=== PATIENT | female | born 1975 ===

== ENCOUNTER 2022-10-07 14:26 | Emergency (ER) | payer SELFPAY ==
[~2022-10-07] VITALS: Ht 160 cm; Wt 79.8 kg
[2022-10-07] MEDS ORDERED: morphine INJ 10 MG/ML 1ML (SYR OR VIAL) IVP STA (14:46)
--- NOTE | 2022-10-07 14:50 | ED Cardiac General ---
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 Chest pain started on September 15. She states she was seen at [facility] for this chest pain and heart palpitations with a negative work-up. She states she was seen at [facility] yesterday in [place] for the similar chest pain and heart palpitations and had lab work drawn and started on metoprolol tart 825 mg for elevated blood pressure. She states since September 15 she is having chest pressure that is intermittent and pain in her upper abdomen. Seems to be intermittent with associated shortness of breath. No increasing pain with eating. Denies of any previous abdominal surgeries. Denies hypertension, diabetes, high cholesterol, smoking. No known history of coronary artery disease. She states she does not feel well. She states loud noises make the heart palpitations worse. She denies of any recent travels or surgeries or leg swelling. She denies fever, chills, sore throat, cough, vomiting or diarrhea or urinary symptoms. She states her blood pressure has been fluctuating high. Blood pressure yesterday was around 137 systolic. This pain became worse last night and has remained constant in her chest and upper abdomen. Patient having difficulties with sleeping. She states she has is continued heart palpitations since last night. Patient is speaking certified public accountant was used. Allergies and Home Medications Allergies Coded Allergies: No Known Drug Allergies (Unverified , 10/07/22) Patient Home Medication List Home Medication List Reviewed: Yes Pantoprazole Sodium (Protonix) 40 Mg Tablet.dr 40 MG PO DAILY Prescribed by: LORAINE RAMÍREZ on 10/07/22 7237 Review of Systems Review of Systems Constitutional: No chills, No diaphoresis, No fever, No malaise EENTM: No Double Vision, No Eye Pain Respiratory: Denies Cough, Denies Orthopnea; Shortness of Air Cardiovascular: Chest Pain Gastrointestinal: Abdominal Pain; Denies Diarrhea, Denies Nausea, Denies Vomiting Genitourinary: Denies Burning, Denies Discharge Musculoskeletal: No back pain, No joint pain Skin: No change in color All Other Systems Reviewed Negative Unless Noted: Yes Physical Exam Vital Signs Vital Signs - First Documented 10/07/22 14:26 Temp 36.9 Pulse 68 Resp 26 B/P (MAP) 159/96 (117) Pulse Ox 98 Capillary Refill : Height, Weight, BMI Height: '" Weight: lbs. oz. kg; BMI Method: General Appearance: No Apparent Distress, WD/WN HEENT: PERRL/EOMI, TMs Normal, Normal ENT Inspection, Pharynx Normal Neck: Full Range of Motion, Normal Inspection, Non Tender, Supple Respiratory: Chest Non Tender, Lungs Clear, Normal Breath Sounds, No Accessory Muscle Use, No Respiratory Distress Cardiovascular: Regular Rate, Rhythm, No Edema, No Gallop, No JVD, No Murmur Gastrointestinal: Normal Bowel Sounds, No Organomegaly, No Pulsatile Mass, Soft, Tenderness (Epigastric tenderness) Neurologic/Psychiatric: Alert, Oriented x3, No Motor/Sensory Deficits, Normal Mood/Affect, card setter II-XII Norm as Tested Skin: Normal Color, Warm/Dry Progress/Results/Core Measures Results/Orders Lab Results Laboratory Tests Test 10/07/22 14:35 10/07/22 15:22 Range/Units White Blood Count 11.2 H 4.3-11.0 10^3/uL Red Blood Count 4.83 3.80-5.11 10^6/uL Hemoglobin 15.0 11.5-16.0 g/dL Hematocrit 44 35-52 % Mean Corpuscular Volume 90 80-99 fL Mean Corpuscular Hemoglobin 31 25-34 pg Mean Corpuscular Hemoglobin Concent 34 32-36 g/dL Red Cell Distribution Width 12.3 10.0-14.5 % Platelet Count 242 130-400 10^3/uL Mean Platelet Volume 10.7 9.0-12.2 fL Immature Granulocyte % (Auto) 0 % Neutrophils (%) (Auto) 75 42-75 % Lymphocytes (%) (Auto) 17 12-44 % Monocytes (%) (Auto) 7 0-12 % Eosinophils (%) (Auto) 0 0-10 % Basophils (%) (Auto) 0 0-10 % Neutrophils # (Auto) 8.3 H 1.8-7.8 X 10^3 Lymphocytes # (Auto) 1.9 1.0-4.0 X 10^3 Monocytes # (Auto) 0.8 0.0-1.0 X 10^3 Eosinophils # (Auto) 0.0 0.0-0.3 10^3/uL Basophils # (Auto) 0.0 0.0-0.1 10^3/uL Immature Granulocyte # (Auto) 0.0 0.0-0.1 10^3/uL Prothrombin Time 12.4 12.2-14.7 SEC INR Comment 0.9 0.8-1.4 Activated Partial Thromboplast Time 26 24-35 SEC Sodium Level 141 135-145 MMOL/L Potassium Level 3.4 L 3.6-5.0 MMOL/L Chloride Level 107 98-107 MMOL/L Carbon Dioxide Level 23 21-32 MMOL/L Anion Gap 11 5-14 MMOL/L Blood Urea Nitrogen 6 L 7-18 MG/DL Creatinine 0.70 0.60-1.30 MG/DL Estimat Glomerular Filtration Rate 109 BUN/Creatinine Ratio 9 Glucose Level 120 H 70-105 MG/DL Calcium Level 9.5 8.5-10.1 MG/DL Corrected Calcium 8.5-10.1 MG/DL Magnesium Level 2.4 1.6-2.4 MG/DL Total Bilirubin 0.5 0.1-1.0 MG/DL Aspartate Amino Transf (AST/SGOT) 21 5-34 U/L Alanine Aminotransferase (ALT/SGPT) 20 0-55 U/L Alkaline Phosphatase 80 40-136 U/L Myoglobin 17.5 10.0-92.0 NG/ML Troponin I < 0.028 <0.028 NG/ML B-Type Natriuretic Peptide 25.0 <100.0 PG/ML Total Protein 8.5 H 6.4-8.2 GM/DL Albumin 4.9 H 3.2-4.5 GM/DL Lipase 25 8-78 U/L Urine Color YELLOW Urine Clarity CLEAR Urine pH 7.0 5-9 Urine Specific [place] 1.010 L 1.016-1.022 Urine Protein NEGATIVE NEGATIVE Urine Glucose (UA) NEGATIVE NEGATIVE Urine Ketones NEGATIVE NEGATIVE Urine Nitrite NEGATIVE NEGATIVE Urine Bilirubin NEGATIVE NEGATIVE Urine Urobilinogen 0.2 < = 1.0 MG/DL Urine Leukocyte Esterase NEGATIVE NEGATIVE Urine RBC (Auto) 1+ H NEGATIVE Urine RBC 0-2 /HPF Urine WBC RARE /HPF Urine Squamous Epithelial Cells 0-2 /HPF Urine Crystals NONE /LPF Urine Bacteria TRACE /HPF Urine Casts NONE /LPF Urine Mucus NEGATIVE /LPF Urine Culture Indicated NO My Orders Orders - SOHAIL MARTINEZ PA Cbc With Automated Diff (10/07/22 14:46) Magnesium (10/07/22 14:46) Chest 1 View, Ap/Pa Only (10/07/22 14:46) Comprehensive Metabolic Panel (10/07/22 14:46) Myoglobin Serum (10/07/22 14:46) Protime With Inr (10/07/22 14:46) Partial Thromboplastin Time (10/07/22 14:46) O2 (10/07/22 14:46) Monitor-Rhythm Ecg Trace Only (10/07/22 14:46) Lipid Panel (10/08/22 06:00) Ed Iv/Invasive Line Start (10/07/22 14:46) Lipase (10/07/22 14:46) Bnp [place] (10/07/22 14:46) Troponin I [place] (10/07/22 14:46) Aspirin Chewable Tablet (Baby Aspirin Ch (10/07/22 15:00) Morphine Injection (Morphine Injection (10/07/22 14:46) Ua Culture If Indicated (10/07/22 15:15) Lidocaine 2% Viscous 15 Ml (Xylocaine Vi (10/07/22 16:00) Antacid Suspension (Mylanta Suspension (10/07/22 16:00) Medications Given in ED Current Medications Medications Dose Ordered Sig/Smith Route Start Time Stop Time Status Last Admin Dose Admin Al Hydrox/Mg Hydrox/Simethicone 30 ml ONCE ONCE PO 10/07/22 16:00 10/07/22 16:01 DC 10/07/22 15:55 30 ML Aspirin 324 mg ONCE ONCE PO 10/07/22 15:00 10/07/22 15:01 DC 10/07/22 15:13 324 MG Lidocaine HCl 15 ml ONCE ONCE PO 10/07/22 16:00 10/07/22 16:01 DC 10/07/22 15:55 15 ML Vital Signs/I&O 10/07/22 14:26 Temp 36.9 Pulse 68 Resp 26 B/P (MAP) 159/96 (117) Pulse Ox 98 Comment Sinus rhythm, minimal voltage criteria for LVH, 73 bpm, QRS duration 90 MS, QTc 410 MS Departure Communication (PCP) Patient is a 46-year-old female with no known medical problems who presents ED with chest pain, abdominal pain and heart palpitations. Symptoms since early September. She has been seen at [facility] ER for similar symptoms. She was prescribed metoprolol tartate 25mg yesterday for elevated blood pressure. No known cardiac history. Pain is not specifically worse with eating. Pain to her upper abdomen on palpation. Due to current presentation and location cardiac work-up was started. She did receive a full aspirin. EKG showed normal sinus rhythm without evidence of ST elevation or depression. No evidence of arrhythmia. Slightly hypertensive but did improve. Chest x-ray was negative for pneumonia, pneumothorax. Initial cardiac work-up troponin and BNP negative. Low heart score. PERC rule is low. No recent travels or surgeries. No appreciation of lower leg swelling. She is not tachycardic or hypoxic. Did receive a GI cocktail with improvement of her upper abdominal pain. Unclear if the heart palpitations is causing her chest pain or other etiology. CBC, CMP was grossly unremarkable. She had a blood sugar 120 potassium of 3.4. White blood count 11.2 all nonspecific. No flulike symptoms. She does not appear toxic or septic. Urinalysis negative for infection. She states pain appears to be improving. Concern for form of gastritis. She has no right upper quadrant tenderness suggesting cholecystitis. Normal liver enzymes and without specific tenderness to this location. Normal lipase. due to her low heart score and reassuring EKG and lab work recommend outpatient cardiac follow-up for further evaluation of this chest pain. Chest pain could be result of the gastritis versus esophagitis. Language barrier makes it difficult to get a good history and she is a poor historian. Sill Worker was used. we will trial Protonix at this time. Avoid eating late at night. Elevate your bed. Avoid fatty foods spicy foods. Further cardiac evaluation. Impression Primary Impression: Palpitations Disposition: HOME, SELF-CARE Condition: Stable Departure-Patient Inst. Decision time for Depature: 15:47 Referrals: [facility]/KERRY SANDOVAL MD FACP FACC CCDS UNKNOWN (PCP) Primary Care Physician Patient Instructions: Chest Pain (DC) Add. Discharge Instructions: Need to follow-up with your primary care physician for further evaluation. Recommend cardiology outpatient follow-up which was provided in discharge instructions All discharge instructions reviewed with patient and/or family. Voiced understanding. Scripts Pantoprazole Sodium (Protonix) 40 Mg Tablet.dr 40 MG PO DAILY for 20 Days, #20 TAB Prov: SOHAIL MARTINEZ 10/07/22 SOHAIL MARTINEZ Oct 07, 2022 14:50
[2022-10-07 14:55] LABS: BASOPHILS % (AUTO) 0 % (0-10); EOSINOPHILS % (AUTO) 0 % (0-10); HEMATOCRIT 44 % (35-52); LYMPHOCYTES # (AUTO) 1.9 X 10^3 (1.0-4.0); LYMPHOCYTES % (AUTO) 17 % (12-44); MEAN CORPUSCULAR HEMOGLOBIN 31 pg (25-34); MEAN CORPUSCULAR HGB CONC 34 g/dL (32-36); MEAN CORPUSCULAR VOLUME 90 fL (80-99); MEAN PLATELET VOLUME 10.7 fL (9.0-12.2); MONOCYTES # (AUTO) 0.8 X 10^3 (0.0-1.0); MONOCYTES % (AUTO) 7 % (0-12); NEUTROPHILS # (AUTO) 8.3 X 10^3 (1.8-7.8); NEUTROPHILS % (AUTO) 75 % (42-75); PLATELET COUNT 242 10^3/uL (130-400); WHITE BLOOD COUNT 11.2 10^3/uL (4.3-11.0)
[2022-10-07 14:58] LABS: ALBUMIN 4.9 GM/DL (3.2-4.5); CHLORIDE 107 MMOL/L (98-107); INR 0.9 (0.8-1.4); POTASSIUM 3.4 MMOL/L (3.6-5.0); PROTHROMBIN TIME PATIENT 12.4 SEC (12.2-14.7); SODIUM 141 MMOL/L (135-145)
[2022-10-07 14:59] LABS: CALCIUM 9.5 MG/DL (8.5-10.1)
[2022-10-07 15:00] LABS: GLUCOSE 120 MG/DL (70-105); TOTAL PROTEIN 8.5 GM/DL (6.4-8.2)
[2022-10-07] MEDS ORDERED: ASPIRIN 81 MG CHEW (CHILDREN'S ASA) PO ONE (15:00)
[2022-10-07 15:01] LABS: CARBON DIOXIDE 23 MMOL/L (21-32)
[2022-10-07 15:02] LABS: BILIRUBIN,TOTAL 0.5 MG/DL (0.1-1.0)
[2022-10-07 15:04] LABS: ALKALINE PHOSPHATASE 80 U/L (40-136); GFR ESTIMATED 109
[2022-10-07 15:05] LABS: BUN/CREATININE RATIO 9
[2022-10-07 15:07] LABS: ALANINE AMINOTRANSFERASE 20 U/L (0-55); MAGNESIUM 2.4 MG/DL (1.6-2.4)
[2022-10-07 15:08] LABS: LIPASE 25 U/L (8-78)
[2022-10-07 15:29] LABS: BILIRUBIN,URINE NEGATIVE (NEGATIVE); CLARITY,URINE CLEAR; COLOR,URINE YELLOW; GLUCOSE, URINE (UA) NEGATIVE (NEGATIVE); KETONES,URINE NEGATIVE (NEGATIVE); LEUKOCYTE ESTERASE ,URINE NEGATIVE (NEGATIVE); NITRITE,URINE NEGATIVE (NEGATIVE); PROTEIN,URINE NEGATIVE (NEGATIVE)
[2022-10-07 15:41] LABS: BACTERIA,URINE TRACE /HPF; RBC,URINE 0-2 /HPF; SQUAMOUS EPITHELIAL CELL,UR 0-2 /HPF; WBC,URINE RARE /HPF
--- NOTE | 2022-10-07 15:46 | Diagnostic Imaging Report ---
INDICATION: Chest pain. FINDINGS: The heart and lungs appear normal. IMPRESSION: Negative. Dictated by: Dictated on workstation # [id number]
[2022-10-07] MEDS ORDERED: PANT40TA2 PO (15:52)
[2022-10-07] MEDS ORDERED: ANTACID SUSP 30 ML UDC (MYLANTA) PO ONE (16:00)
[2022-10-07] MEDS ORDERED: LIDOCAINE 2% VISCOUS 15 ML UDC PO ONE (16:00)
[2022-10-07 16:50] VITALS: BP 119/75
== END 2022-10-07 16:54 | disposition home or self-care (01) ==
LOC: ER 14:30
DX: R00.2 Palpitations (principal); R10.13 Epigastric pain; R03.0 Elevated blood-pressure reading, without diagnosis of hypertension; R07.89 Other chest pain
CPT/HCPCS: 36415; 71045; 80053; 81000; 83690; 83735; 83874; 83880; 84484; 85025; 85610; 85730; 93005; 93041